=== PATIENT | female | born 1980 | race Two or more races ===

== ENCOUNTER 2021-09-23 10:54 | Outpatient (CLI) | payer OTHER | END 2021-09-23 11:04 | disposition home or self-care (01) | LOC: RX STUDY 10:54 | PROVIDERS: ATTEND Obstetrics & Gynecology | DX: R97.8 Other abnormal tumor markers (principal) ==

== ENCOUNTER 2022-01-22 09:32 | Outpatient (CLI) | payer OTHER | END 2022-01-22 09:40 | disposition home or self-care (01) | LOC: SONOGRAMA 09:32 | PROVIDERS: ATTEND Specialist | DX: N93.9 Abnormal uterine and vaginal bleeding, unspecified (principal) ==